=== PATIENT | female | born 1945 | race Caucasian/White ===

== ENCOUNTER → 2016-11-10 | Outpatient (CLI) | payer MEDICARE, BC ==
[~2016-11-10] MED LIST: AMITRIPTYLINE10 MG PO; ASPRIN; BUDEPRION XL150 MG PO; DILTIAZEM XT PO; FLUOXETINE20 MG PO; HCTZ12.5TAB PO; LEVOTHROID0.05 MG PO; MULTIPLE VITAMI1 CAP PO; PROMETRIUM100 MG PO; SIMVASTATIN40 MG PO; SYNTHROID0.075 MG/T PO; VICODIN 5/5001 UDTAB PO; VIT B 12; VITAMIN D 1001000 IU PO
== END ==
LOC: MC.RAD 11:20
DX: Z12.31 Encounter for screening mammogram for malignant neoplasm of breast (principal)

== ENCOUNTER → 2017-11-11 | Outpatient (CLI) | payer MEDICARE, BC | LOC: MC.RAD 14:05 | DX: Z12.31 Encounter for screening mammogram for malignant neoplasm of breast (principal) ==

== ENCOUNTER 2018-08-19 23:02 | Emergency (ER) | payer MEDICARE, BC ==
[~2018-08-19] VITALS: Ht 162.6 cm; Wt 95.0 kg
[2018-08-19 23:06] VITALS: BP 159/69; TEMP 97.8
[2018-08-19] MEDS ORDERED: VITAMIN D31000 I1 PO (23:25)
[2018-08-19] MEDS ORDERED: PRAVACHOL 40MG40 MG PO (23:25)
[2018-08-19] MEDS ORDERED: B-121000 MCG PO (23:26)
[2018-08-19] MEDS ORDERED: ATIVAN 0.50.5 MG/TAB PO (23:27)
[2018-08-19] MEDS ORDERED: HYDROCORTISO28.35 GM TOP (23:52)
[2018-08-20 00:57] VITALS: PULSE 80
== END 2018-08-20 01:42 | disposition home or self-care (01) ==
LOC: COL.ER 23:02
DX: L29.9 Pruritus, unspecified (principal)
CPT/HCPCS: J8540

== ENCOUNTER → 2018-11-12 | Outpatient (CLI) | payer MEDICARE, BC ==
[~2018-11-12] MED LIST changes: +ATIVAN 0.50.5 MG/TAB PO; +B-121000 MCG PO; +HYDROCORTISO28.35 GM TOP; +PRAVACHOL 40MG40 MG PO; +VITAMIN D31000 I1 PO
== END ==
LOC: MC.RAD 13:08
DX: Z12.31 Encounter for screening mammogram for malignant neoplasm of breast (principal)

== ENCOUNTER 2019-01-07 03:01 | Emergency (ER) | payer MEDICARE, BC ==
[~2019-01-07] VITALS: Ht 162.6 cm; Wt 89.1 kg
[~2019-01-07 03:01] MED LIST changes: -COUMADIN 5MG5 MG/TAB PO; -COZAAR100 MG PO; -TOPROL XL 25MG25 MG PO
[2019-01-07 03:08] VITALS: TEMP 96.8
[2019-01-07 03:50] LABS: BASO # 0.1 (0.0-0.2); BASO % 0.6 % (0.0-2.0); EOS # 0.3 (0.0-0.7); EOS % 3.1 % (0-4.0); GRAN % 64.7 % (42.2-75.2); HEMATOCRIT 37.4 % (37.0-47.0); HEMOGLOBIN 11.5 g/dl (12.5-16.0); LYMPH # 2.4 (1.2-3.4); LYMPH % 21.9 % (20.0-51.0); MEAN CELL VOLUME 80 fl (80.0-100.0); MEAN CORPUSCULAR HEMOGLOBIN 25 pg (27.0-31.0); MEAN CORPUSCULAR HGB CONC 31 g/dl (33.0-37.0); MEAN PLATELET VOLUME 10.7 fl (7.4-10.4); MONO % 9.4 % (1.7-9.3); PLATELET COUNT 419 K/mm3 (130-400); RED BLOOD COUNT 4.65 M/mm3 (4.10-5.30); REDCELL DISTRIBUTION WIDTH-CV 15.1 % (11.5-14.5)
[2019-01-07 04:05] LABS: ALANINE AMINOTRANSFERASE 23 U/L (9-52); ALKALINE PHOSPHATASE 135 U/L (50-136); ANION GAP 9 mmol/L (7-16); AST,SGOT 22 U/L (15-37); BILIRUBIN,TOTAL 0.3 mg/dL (0.0-1.0); BLOOD UREA NITROGEN 23 mg/dL (7-17); C-REACTIVE PROTEIN 1.8 mg/dL (0.0-0.9); CALCIUM 8.9 mg/dL (8.4-10.2); CARBON DIOXIDE 24 mmol/L (22-30); CHLORIDE 106 mmol/L (98-107); CREATININE, serum 1.24 mg/dL (0.52-1.25); GLUCOSE 108 mg/dL (74-106); POTASSIUM 4.2 mmol/L (3.4-5.0); SODIUM 140 mmol/L (137-145); TOTAL PROTEIN 6.8 gm/dL (6.4-8.2)
[2019-01-07 04:16] LABS: TROPONIN-I < 0.012 ng/mL (0.000-0.035)
[2019-01-07] MEDS ORDERED: COZAAR100 MG PO (04:40)
[2019-01-07 05:00] VITALS: BP 108/65; PULSE 97
[2019-01-07 05:42] LABS: PROTHROMBIN TIME 10.9 SECONDS (9.7-12.8)
[2019-01-07 05:45] LABS: PARTIAL THROMBOPLASTIN TIME 35.6 SECONDS (26.0-37.0)
== END 2019-01-07 05:28 | disposition home or self-care (01) ==
LOC: COL.ER 03:01
PROVIDERS: Emergency Medicine
DX: I48.91 Unspecified atrial fibrillation (principal); F41.9 Anxiety disorder, unspecified; E78.5 Hyperlipidemia, unspecified; I10 Essential (primary) hypertension
CPT/HCPCS: J1650

== ENCOUNTER → 2019-01-07 | Outpatient (CLI) | payer MEDICARE, BC ==
[~2019-01-07] MED LIST changes: +COUMADIN 5MG5 MG/TAB PO; +COZAAR100 MG PO; +TOPROL XL 25MG25 MG PO
== END ==
LOC: COL.VAS 08:15
DX: I48.0 Paroxysmal atrial fibrillation (principal); I08.1 Rheumatic disorders of both mitral and tricuspid valves

== ENCOUNTER 2019-01-10 15:03 | Emergency (ER) | payer MEDICARE, BC ==
[~2019-01-10] VITALS: Ht 162.6 cm; Wt 89.1 kg
[~2019-01-10 15:03] MED LIST changes: +COZAAR100 MG PO
[2019-01-10 15:07] VITALS: TEMP 98.7
[2019-01-10] MEDS ORDERED: TOPROL XL 25MG25 MG PO (16:13)
[2019-01-10] MEDS ORDERED: COUMADIN 5MG5 MG/TAB PO (16:13)
[2019-01-10 17:36] VITALS: BP 113/98; PULSE 96
== END 2019-01-10 17:45 | disposition home or self-care (01) ==
LOC: COL.ER 15:03
DX: I48.91 Unspecified atrial fibrillation (principal); E78.5 Hyperlipidemia, unspecified; E03.9 Hypothyroidism, unspecified

== ENCOUNTER 2019-02-08 18:15 | Emergency (ER) | payer MEDICARE, BC ==
[~2019-02-08] VITALS: Ht 162.6 cm; Wt 85.5 kg
[~2019-02-08 18:15] MED LIST changes: +COUMADIN 5MG5 MG/TAB PO; +TOPROL XL 25MG25 MG PO
[2019-02-08 18:25] VITALS: TEMP 98.6
[2019-02-08 19:29] LABS: INR 1.3 (0.8-3.0); PROTHROMBIN TIME 14.5 SECONDS (9.7-12.8)
[2019-02-08 19:30] LABS: BASO # 0.1 (0.0-0.2); BASO % 0.8 % (0.0-2.0); EOS # 0.3 (0.0-0.7); EOS % 2.3 % (0-4.0); GRAN # 7.4 (1.4-6.5); GRAN % 68.4 % (42.2-75.2); HEMOGLOBIN 11.5 g/dl (12.5-16.0); LYMPH % 18.3 % (20.0-51.0); MEAN CELL VOLUME 81 fl (80.0-100.0); MEAN CORPUSCULAR HEMOGLOBIN 25 pg (27.0-31.0); MEAN CORPUSCULAR HGB CONC 31 g/dl (33.0-37.0); MEAN PLATELET VOLUME 10.9 fl (7.4-10.4); MONO # 1.1 (0.1-0.6); MONO % 9.9 % (1.7-9.3); PLATELET COUNT 398 K/mm3 (130-400); RED BLOOD COUNT 4.56 M/mm3 (4.10-5.30); REDCELL DISTRIBUTION WIDTH-CV 16.5 % (11.5-14.5)
[2019-02-08 19:32] LABS: HEMATOCRIT 36.7 % (37.0-47.0)
[2019-02-08 19:37] LABS: ALBUMIN 4.1 gm/dL (3.5-5.0); BILIRUBIN,TOTAL 0.2 mg/dL (0.0-1.0); CALCIUM 9.2 mg/dL (8.4-10.2); CREATININE, serum 1.49 (0.52-1.25); MAGNESIUM 2.1 mg/dL (1.6-2.3); POTASSIUM 4.5 mmol/L (3.4-5.0)
[2019-02-08 19:51] LABS: PROLACTIN 11.5 ng/mL (3.0-18.6)
[2019-02-08 20:20] VITALS: BP 127/82; PULSE 94
[2019-02-08] MEDS ORDERED: WELLBUTRIN XL150 MG PO (20:35)
[2019-02-08] MEDS ORDERED: CARDIZEM 90MG T90 MG PO (20:36)
[2019-02-08] MEDS ORDERED: ELIQUIS 5MG PO (20:36)
[2019-02-08] MEDS ORDERED: KLONOPIN 0.5MG0.5 MG PO (20:37)
[2019-02-08] MEDS ORDERED: ASPIRIN E.C. 8181 MG PO (20:38)
== END 2019-02-08 20:44 | disposition home or self-care (01) ==
LOC: COL.ER 18:15
PROVIDERS: Emergency Medicine
DX: I48.91 Unspecified atrial fibrillation (principal); F41.9 Anxiety disorder, unspecified; E78.5 Hyperlipidemia, unspecified; I10 Essential (primary) hypertension; Z79.82 Long term (current) use of aspirin
CPT/HCPCS: J2060; J7040

== ENCOUNTER 2019-12-20 08:31 | Emergency (ER) | payer MEDICARE, BC ==
[~2019-12-20] VITALS: Ht 162.6 cm; Wt 85.0 kg
[~2019-12-20 08:31] MED LIST changes: +APRESOLINE 10MG10 MG PO; +ASPIRIN E.C. 8181 MG PO; +B-12 500 MCG PO; +CARDIZEM 90MG T90 MG PO; +CEPHALEXIN500 M1 PO; +ELIQUIS 5MG PO; +FLONASE NASAL S16 GM NS; +KLONOPIN 0.5MG0.5 MG PO; +LASIX 20MG TABL20 MG PO; +NORVASC 5MG5 MG/TAB PO; +OMNICEF 300MG300 MG PO; +PROZAC 20MG20 MG PO; +WELLBUTRIN XL150 MG PO; +ZITHROMAX500 M2 PO
[2019-12-20 08:38] VITALS: TEMP 97.7
[2019-12-20 08:59] LABS: BASO # 0.1 (0.0-0.2); BASO % 1.2 % (0.0-2.0); EOS # 0.4 (0.0-0.7); EOS % 4.5 % (0-4.0); GRAN # 6.3 (1.4-6.5); GRAN % 68.5 % (42.2-75.2); HEMATOCRIT 39.2 % (37.0-47.0); HEMOGLOBIN 11.7 g/dl (12.5-16.0); LYMPH # 1.5 (1.2-3.4); LYMPH % 16.4 % (20.0-51.0); MEAN CELL VOLUME 80 fl (80.0-100.0); MEAN CORPUSCULAR HEMOGLOBIN 24 pg (27.0-31.0); MEAN CORPUSCULAR HGB CONC 30 g/dl (33.0-37.0); MEAN PLATELET VOLUME 10.3 fl (7.4-10.4); MONO # 0.8 (0.1-0.6); MONO % 9.2 % (1.7-9.3); PLATELET COUNT 416 K/mm3 (130-400); RED BLOOD COUNT 4.88 M/mm3 (4.10-5.30); REDCELL DISTRIBUTION WIDTH-CV 15.5 % (11.5-14.5)
[2019-12-20 09:05] LABS: INR 1.3 (0.8-3.0); PROTHROMBIN TIME 14.7 SECONDS (9.7-12.8)
[2019-12-20 09:07] LABS: PARTIAL THROMBOPLASTIN TIME 39.8 SECONDS (26.0-37.0)
[2019-12-20 09:10] LABS: ALBUMIN 4.8 gm/dL (3.5-5.0); BILIRUBIN,TOTAL 0.6 mg/dL (0.0-1.0); CALCIUM 9.5 mg/dL (8.4-10.2); CREATININE, serum 1.14 (0.52-1.25); POTASSIUM 4.5 mmol/L (3.4-5.0)
[2019-12-20 09:21] LABS: TROPONIN-I 0.016 ng/mL (0.000-0.035)
[2019-12-20 11:36] VITALS: BP 138/71; PULSE 99
== END 2019-12-20 11:37 | disposition home or self-care (01) ==
LOC: COL.ER 08:31
PROVIDERS: Family Medicine
DX: I48.20 Chronic atrial fibrillation, unspecified (principal); E86.0 Dehydration; I10 Essential (primary) hypertension; Z95.0 Presence of cardiac pacemaker; Z79.82 Long term (current) use of aspirin; Z79.01 Long term (current) use of anticoagulants
CPT/HCPCS: J7030

== ENCOUNTER → 2020-07-04 | Outpatient (CLI) | payer MEDICARE, BC | LOC: MC.RAD 13:28 | DX: Z12.31 Encounter for screening mammogram for malignant neoplasm of breast (principal) ==

== ENCOUNTER → 2021-04-09 | Outpatient (CLI) | payer MEDICARE, BC | LOC: COL.RAD 08:15 | DX: M54.6 Pain in thoracic spine (principal) ==

== ENCOUNTER → 2021-11-11 | Outpatient (CLI) | payer MEDICARE, BC | LOC: MC.RAD 11:16 | DX: Z12.31 Encounter for screening mammogram for malignant neoplasm of breast (principal) ==

== ENCOUNTER 2022-05-08 09:59 | Emergency (ER) | payer MEDICARE, BC ==
[~2022-05-08] VITALS: Ht 162.6 cm; Wt 82.3 kg
[2022-05-08 09:59] VITALS: TEMP 98.2
[2022-05-08] MEDS ORDERED: B-12 500 MCG PO (10:18)
[2022-05-08] MEDS ORDERED: VITAMIN D31000 IU PO (10:18)
[2022-05-08] MEDS ORDERED: DIOVAN 160MG160 MG PO (10:19)
[2022-05-08] MEDS ORDERED: TOPROL XL 25MG25 MG PO (10:21)
[2022-05-08] MEDS ORDERED: NORVASC 10MG10 MG PO (10:22)
[2022-05-08] MEDS ORDERED: LAMICTAL200 MG PO (10:23)
[2022-05-08 10:45] LABS: INR 1.3 (0.8-3.0); PROTHROMBIN TIME 15.3 SECONDS (9.7-12.8)
[2022-05-08 10:48] LABS: BASO # 0.1 K/mm3 (0.0-0.2); BASO % 0.6 % (0.0-2.0); EOS # 0.3 K/mm3 (0.0-0.7); EOS % 2.1 % (0.0-4.0); GRAN # 10.4 K/mm3 (1.4-6.5); GRAN % 81.7 % (42.2-75.2); HEMOGLOBIN 10.4 g/dl (12.5-16.0); LYMPH % 8.1 % (20.0-51.0); MEAN CELL VOLUME 80 fl (80.0-100.0); MEAN CORPUSCULAR HEMOGLOBIN 25 pg (27-31); MEAN CORPUSCULAR HGB CONC 32 g/dl (33.0-37.0); MEAN PLATELET VOLUME 10.6 fl (7.4-10.4); MONO # 0.9 K/mm3 (0.1-0.6); MONO % 7.2 % (1.7-9.3); PLATELET COUNT 398 K/mm3 (130-400); REDCELL DISTRIBUTION WIDTH-CV 15.4 % (11.5-14.5)
[2022-05-08 10:53] LABS: ALBUMIN 3.5 gm/dL (3.4-4.8); BILIRUBIN,TOTAL 0.4 mg/dL (0.2-1.2); C-REACTIVE PROTEIN 2.11 mg/dL (0.00-0.50); CALCIUM 8.4 mg/dL (8.4-10.2); CREATININE, serum 1.25 mg/dL (0.57-1.11); POTASSIUM 4.1 mmol/L (3.5-4.5); TOTAL PROTEIN 6.3 gm/dL (6.2-8.1)
[2022-05-08 10:59] LABS: HEMATOCRIT 32.7 % (37.0-47.0)
[2022-05-08 11:34] LABS: COLLECTION METHOD CLEAN CATCH
[2022-05-08 11:48] LABS: SQUAMOUS EPITHELIAL 0-2 /hpf (0-10); URINE BACTERIA None Seen /hpf (NONE SEEN)
[2022-05-08 11:49] LABS: PH 7 (5-8); URINE APPEARANCE Clear (CLEAR/HAZY); URINE BILIRUBIN Negative (NEGATIVE); URINE BLOOD 3+ (NEGATIVE); URINE COLOR Yellow (YELLOW); URINE GLUCOSE Negative (NEGATIVE); URINE KETONE Negative (NEGATIVE); URINE LEUKOCYTE ESTERASE Negative (NEGATIVE); URINE NITRATE Negative (NEGATIVE); URINE PROTEIN(semi-quant) 1+ (NEGATIVE); URINE UROBILINOGEN Negative (NEGATIVE)
[2022-05-08] MEDS ORDERED: ZOFRAN ODT4 MG PO (12:31)
[2022-05-08 13:00] VITALS: BP 120/69; PULSE 60
== END 2022-05-08 13:00 | disposition home or self-care (01) ==
LOC: COL.ER 09:59
PROVIDERS: Physician Assistant
DX: K52.9 Noninfective gastroenteritis and colitis, unspecified (principal); D72.829 Elevated white blood cell count, unspecified; I48.91 Unspecified atrial fibrillation; Z79.01 Long term (current) use of anticoagulants
CPT/HCPCS: C9113; J2405; J7030; Q9967

== ENCOUNTER 2024-03-10 06:18 | Emergency (ER) | payer MEDICARE, BC ==
[~2024-03-10] VITALS: Ht 162.6 cm; Wt 86.4 kg
[~2024-03-10 06:18] MED LIST changes: +DIOVAN 160MG160 MG PO; +LAMICTAL200 MG PO; +NORVASC 10MG10 MG PO; +VITAMIN D31000 IU PO; +ZOFRAN ODT4 MG PO
[2024-03-10 06:21] VITALS: TEMP 99.4
[2024-03-10] MEDS ORDERED: Iohexol 300 - 100 ML VIAL IV ONE (09:00)
[2024-03-10] MEDS ORDERED: NS 100 ML IV SCH (09:00)
[2024-03-10] MEDS ORDERED: oxyCODONE 5 MG TAB PO ONE ×2 (12:00→12:30)
[2024-03-10 14:08] VITALS: BP 122/57; PULSE 61
[2024-03-10] MEDS ORDERED: NS 1,000 ML IV SCH (16:54)
[2024-03-10] MEDS ORDERED: Ondansetron 4 MG/2 ML VIAL IV SCH (16:55)
[2024-03-10] MEDS ORDERED: cefTRIAXone 1 G in Water For Injection,Sterile 10 ML IV SCH (17:00)
== END 2024-03-10 14:08 | disposition home or self-care (01) ==
LOC: COL.ER 09:28
DX: N12 Tubulo-interstitial nephritis, not specified as acute or chronic (principal); I10 Essential (primary) hypertension; R79.1 Abnormal coagulation profile; T46.1X6A Underdosing of calcium-channel blockers, initial encounter; T50.2X6A Underdosing of carbonic-anhydrase inhibitors, benzothiadiazides and other diuretics, initial encounter; Z91.A28 Caregiver's intentional underdosing of medication regimen for other reason
CPT/HCPCS: J0696; J2405; J7030; Q9967